=== PATIENT | male | born 1990 | race Caucasian/White ===

== ENCOUNTER → 2024-05-18 17:18 | Outpatient (REF) | payer BC, SELFPAY ==
[2024-05-18 18:47] LABS: % Basophils 0.9 % (0-2); % Eosinophils 8.7 % (0-6); % Immature Granulocytes 0.3 % (0-0.5); % Lymphocytes 24.8 % (20.5-51.1); % Monocytes 6.1 % (1.7-9.3); % Neutrophils 59.2 % (42.2-75.2); Absolute Basophils 0.1 10^3/uL (0-0.2); Absolute Eosinophils 0.6 10^3/uL (0-0.7); Absolute Lymphocytes 1.8 10^3/uL (1.2-3.4); Absolute Monocytes 0.4 10^3/uL (0.1-0.6); Absolute Neutrophils 4.2 10^3/uL (1.4-6.5); Hematocrit 44.6 % (39.0-52.0); Hemoglobin 14.7 g/dL (13.0-18.0); Mean Corpuscular Hgb 29.6 pg (27.0-31.0); Mean Corpuscular Volume 89.7 fL (80.0-94.0); Mean Platelet Volume 10.6 fL (7.4-10.4); Nucleated Red Blood Cells % 0 % (-); Platelet Count 216 10^3/uL (130-400); Red Blood Cell Count 4.97 10^6/uL (4.70-6.10); Red Cell Dist. Width 13.3 % (11.5-14.5); White Blood Cell Count 7.1 10^3/uL (4.8-10.8)
[2024-05-18 18:48] LABS: Erythrocyte Sed Rate 5 mm/hour (0-20)
[2024-05-18 18:52] LABS: ALT (SGPT) 24 U/L (0-50); AST (SGOT) 33 U/L (17-59); Albumin 4.7 g/dl (3.5-5.0); Alkaline Phosphatase 64 U/L (38-126); Blood Urea Nitrogen 19 mg/dl (9-20); Carbon Dioxide 29 mmol/L (22-30); Chloride 101 mmol/L (98-107); Glucose 90 mg/dl (70-99); HDL Cholesterol 45 mg/dl; LDL Cholesterol, Calculated 138 mg/dl; Potassium 4.1 mmol/L (3.5-5.1); Sodium 141 mmol/L (135-145); Total Bilirubin 0.7 mg/dl (0.2-1.3); Total Cholesterol 198 mg/dl (50-199); Total Protein 7.4 g/dl (6.3-8.2); Triglyceride 79 mg/dl (10-149); Very Low Density Lipoprotein 15 mg/dl (0-30); eGFR > 60.00
[2024-05-18 18:54] LABS: C-Reactive Protein < 5.00 mg/L (0.0-10.00)
[2024-05-18 19:25] LABS: Cortisol, Random 7.6 ug/dl; TSH Reflex To Free T4 2.42 uIU/ml (0.47-4.68)
[2024-05-18 19:29] LABS: Ferritin 77.4 ng/ml (17.9-464.0)
[2024-05-18 19:44] LABS: Vitamin B12 708 pg/ml (239-931)
[2024-05-19 11:32] LABS: Glycohemoglobin (HgbA1c) 5.3 % (4.0-5.6)
[2024-05-20 13:55] LABS: Lyme Antibody Screen, EIA Negative (Negative)
[2024-05-20 22:28] LABS: % Free Testosterone 1.8 % (1.6-2.9); Free Testosterone 88 pg/mL (47-244); PSA Total 0.4 ng/mL (0.0-4.0); Sex Hormone Binding Globulin 36 nmol/L (17-56); Total Testosterone 486 ng/dL (300-1080)
[2024-05-21 00:29] LABS: ANA, IgG Reflex to HEp-2 Detected (None Detected)
== END ==
LOC: CLAB 17:18
PROVIDERS: ATTENDING PHYSICIAN Nurse Practitioner Family
DX: N52.8 Other male erectile dysfunction (principal); R53.83 Other fatigue; Z13.220 Encounter for screening for lipoid disorders; Z13.1 Encounter for screening for diabetes mellitus; Z13.0 Encounter for screening for diseases of the blood and blood-forming organs and certain disorders involving the immune mechanism
CPT/HCPCS: 36415; 80053; 80061; 82533; 82607; 82728; 83036; 84153; 84154; 84270; 84402; 84403; 84443; 85025; 85652; 86038; 86140; 86618

== ENCOUNTER → 2025-05-20 15:52 | Outpatient (REF) | payer BC, SELFPAY ==
[2025-05-20 16:28] LABS: Hematocrit 47.3 % (39.0-52.0); Hemoglobin 15.4 g/dL (13.0-18.0); Mean Corp Hgb Conc. 32.6 g/dL (33.0-37.0); Mean Corpuscular Volume 89.6 fL (80.0-94.0); Nucleated Red Blood Cells % 0 % (-); Platelet Count 220 10^3/uL (130-400); Red Cell Dist. Width 13.2 % (11.5-14.5)
[2025-05-20 17:21] LABS: ALT (SGPT) 25 U/L (0-50); AST (SGOT) 26 U/L (17-59); Albumin 5.0 g/dl (3.5-5.0); Alkaline Phosphatase 58 U/L (38-126); Blood Urea Nitrogen 21 mg/dl (9-20); Calcium 10.0 mg/dl (8.4-10.2); Carbon Dioxide 30 mmol/L (22-30); Chloride 102 mmol/L (98-107); Glucose 90 mg/dl (70-99); HDL Cholesterol 54 mg/dl; LDL Cholesterol, Calculated 149 mg/dl; Potassium 4.5 mmol/L (3.5-5.1); Sodium 138 mmol/L (135-145); Total Protein 8.0 g/dl (6.3-8.2); Very Low Density Lipoprotein 12 mg/dl (0-30); eGFR > 60.00
[2025-05-20 21:53] LABS: C-Reactive Protein < 5.00 mg/L (0.0-10.00)
[2025-05-20 22:24] LABS: Cortisol, Random 7.6 ug/dl
[2025-05-21 10:00] LABS: Glycohemoglobin (HgbA1c) 5.3 % (4.0-5.6)
[2025-05-23 04:53] LABS: ANA, IgG Reflex to HEp-2 None Detected (None Detected)
== END ==
LOC: LAB 15:52
PROVIDERS: ATTENDING PHYSICIAN Nurse Practitioner Family
DX: R53.82 Chronic fatigue, unspecified (principal); Z13.29 Encounter for screening for other suspected endocrine disorder; Z13.1 Encounter for screening for diabetes mellitus; Z13.0 Encounter for screening for diseases of the blood and blood-forming organs and certain disorders involving the immune mechanism; Z13.220 Encounter for screening for lipoid disorders
CPT/HCPCS: 36415; 80053; 80061; 82533; 83036; 84270; 84402; 84403; 84443; 85025; 85027; 85652; 86038; 86140